=== PATIENT | male | born 1960 | race Caucasian/White ===

== ENCOUNTER 2024-03-15 22:21 | Emergency (ER) | payer OTHER, SELFPAY ==
[2024-03-15 22:26] VITALS: BP 165/75
[2024-03-16 00:01] VITALS: BP 114/80; BMI 27.0
[2024-03-16 00:24] LABS: Urine Albumin Negative (Neg - Trace); Urine Bilirubin Negative (Negative); Urine Character Clear (Clear); Urine Color Yellow; Urine Glucose Negative (Negative); Urine Ketone Negative (Negative); Urine Leukocyte Negative (Negative); Urine Nitrite Negative (Negative); Urine Occult Blood 2+ (Negative); Urine Specific Gravity 1.015 (<1.030); Urine Urobilinogen Negative (Neg - 1+)
--- NOTE | 2024-03-16 00:33 | ED.GENMED ---
History of Present Illness
General
Chief Complaint: Urinary Symptoms
Source: patient and family
Exam Limitations: none
Time Seen by Provider: 03/15/24 23:53
History of Present Illness
History of Present Illness:
63-year-old male who presents with inability urinate for last 4 to 6 hours. States he has been having issues with difficulty urinating and low powered stream as well as frequent urination. Patient denies fevers. Denies vomiting.
Past History
Past History
ED Past Medical History: Cancer (Colon), HTN and Psychiatric (Anxiety, depression)
ED Past Surgical History: Bowel resection
Social History
Tobacco: Smoker
Phy Exam
Physical Exam
Physical Exam:
CONSTITUTIONAL Patient alert and oriented to person, place and time. Well-appearing. Vital signs reviewed.
HEAD atraumatic, normocephalic.
EYES eyelids normal to inspection, Extraocular muscles intact, Conjunctiva normal, Sclera normal.
NECK normal range of motion, Trachea midline, no jugular venous distention.
RESPIRATORY CHEST No respiratory distress noted, Chest expansion equal
ABDOMEN abdomen nontender, Bowel sounds normal. No distention.
uncircumcised, foreskin easily retractable, penis normal, scrotum normal
BACK normal inspection, no obvious deformities
UPPER EXTREMITY range of motion normal, Motor strength normal, no cyanosis, no edema.
LOWER EXTREMITY range of motion normal, Motor strength normal, no cyanosis, no edema.
NEURO Speech normal, No focal motor deficits, Kamrar coma scale 15, Memory normal, Cranial Nerves intact to screening exam.
SKIN skin warm, dry, and normal in color.
Course
Orders/Labs/Results
Orders:
Orders
03/15/24 22:45
Gonzalez [Gonzalez Placement- Treatment] ONCE
Reason for insertion: Acute Retention
03/16/24 00:06
Urinalysis Reflex To Culture Urgent
Date Specimen was Collected: 03/16/24
Time Specimen was Collected: 00:04
Urine Microscopic Reflex Cult Urgent
Abnormal Lab Results
03/16/24
00:06
Ur Occult Blood Reflex 2+ A
(Negative)
Vital Signs
Initial and Last Documented VS:
Initial Vital Signs
Temp Pulse Resp BP Pulse Ox
98.3 F 77 18 165/75 98
03/15/24 22:26 03/15/24 22:26 03/15/24 22:26 03/15/24 22:26 03/15/24 22:26
Last Documented Vital Signs
Temp Pulse Resp BP Pulse Ox
98.2 F 75 18 114/80 97
03/16/24 00:00 03/16/24 00:01 03/16/24 00:01 03/16/24 00:01 03/16/24 00:01
MDM/Problems Addressed
MDM/Problems Addressed:
Acute urinary retention
*Pulse Oximetry
Patient hypoxic: no
*Critical Care Note
Total Time (30-74mins, 75-104mins- exclusive of procedures): Not Applicable
Data Reviewed
Source: patient and family
Prescriptions/Medications Considered But Not Given:
Consider antibiotics but hold off and follow-up with urology
Patient Management
Escalation/DeEscalation of care consider admission/obs:
Urinary retention now with Gonzalez catheter and feels much better. Okay for discharge outpatient follow-up with urology
ED Attending Note
-
Portions of this chart may have been created with voice recognition software.� Occasional wrong word or��sound alike� substitutions may have occurred due to the inherent limitations of voice recognition software.
Discharge Plan
Departure
Patient Disposition: Home (Routine Discharge)
Date of Disposition: 03/16/24
Time of Disposition: 00:36
Patient with high blood pressure during this ER visit?: No
Discharge Problem:
Acute urinary retention
Instructions: Urinary retention
Prescriptions:
New
levofloxacin 250 mg tablet
250 mg PO DAILY Qty: 7 0RF
Referrals:
Jose Sandoval MD [Active] -
Activity Restrictions/Additional Instructions:
Please see urology in the next 7 days for follow-up and reevaluation and Gonzalez catheter removal. Return immediately for blood in the urine, fevers, abdominal pain, vomiting or any other concerns
Interventions
Interventions:
*Risk Screen - Suicide Last Done: 03/15/24 22:26
*General Assessment Last Done: 03/15/24 22:26
*Neglect/Abuse Screening Last Done: 03/16/24 00:02
*ED COVID-19 Vaccine History Last Done: 03/15/24 22:26
ED-Male Genitourinary Assessment Last Done: 03/16/24 00:03
Discharge Date and Time
Print Language: LUX[place]BOURG[place]
[2024-03-16 00:57] LABS: Urine Bacteria Few (Negative); Urine Squamous Cell 0-2 /LPF (Few); Urine White Cell 0-2 /HPF (0-5)
== END 2024-03-16 01:10 | disposition home or self-care (01) ==
LOC: EMR 22:21
PROVIDERS: EMERGENCY PHYSICIAN Emergency Medicine; FAMILY PHYSICIAN Internal Medicine
DX: R33.8 Other retention of urine (principal); I10 Essential (primary) hypertension; F17.200 Nicotine dependence, unspecified, uncomplicated; Z85.038 Personal history of other malignant neoplasm of large intestine
CPT/HCPCS: 51702; 99283; 81003; 81015

== ENCOUNTER 2024-03-16 11:26 | Emergency (ER) | payer OTHER, SELFPAY ==
[2024-03-16 11:38] VITALS: BP 144/85
--- NOTE | 2024-03-16 13:36 | ED.GENMED ---
History of Present Illness
General
Chief Complaint: Catheter/Tube Problem
Source: patient
Time Seen by Provider: 03/16/24 13:16
History of Present Illness
History of Present Illness:
63-year-old male with past medical history of hypertension, previous colon cancer, anxiety and depression, seen in the emergency department early this morning for evaluation of urinary retention, had a Gonzalez catheter placed and was discharged home
with a prescription for levofloxacin. Patient states that early this morning into this afternoon he started noticed some blood within the Gonzalez catheter bag which had him concerned and he decided to come back to the ER for further evaluation.
Patient denies any fevers, chills, rigors but does note he is having bladder spasms and irritation with the Gonzalez catheter in place.
Past History
Past History
ED Past Medical History: Cancer (Colon), HTN and Psychiatric (Anxiety, depression)
ED Past Surgical History: Bowel resection
Social History
Tobacco: Smoker
Alcohol: None
Drug: None
Personal:
Living: with family
Review of Systems
Review of Systems
All Other Systems: ROS reviewed and negative except as documented in HPI and ROS
Phy Exam
Physical Exam
Physical Exam:
GENERAL: Alert , in no apparent distress
EYE: conjunctiva clear
Head: Normocephalic atraumatic
NECK: Supple,
ENT: mmm.
LUNGS: no acute respiratory distress
NEUROLOGICAL: Alert and oriented
SKIN: Warm and dry, skin intact.
MUSCULOSKELETAL: well perfused.
PSYCH: Normal and appropriate interaction.
Scores
Heart Failure Risk
Heart Failure Risk Score: Not Applicable
Heart Score for Chest Pain Patients
STEMI patient?: Not applicable
Withdrawal Assessment of Alcohol
Withdrawal Assessment Completed?: Not applicable
Course
Vital Signs
Initial and Last Documented VS:
Initial Vital Signs
Temp Pulse Resp BP Pulse Ox
98.0 F 78 18 144/85 99
10/17/24 11:38 03/16/24 11:38 03/16/24 11:38 03/16/24 11:38 03/16/24 11:38
Last Documented Vital Signs
Temp Pulse Resp BP Pulse Ox
98.0 F 78 18 144/85 99
03/16/24 11:38 03/16/24 11:38 03/16/24 11:38 03/16/24 11:38 03/16/24 11:38
MDM/Problems Addressed
Differential Diagnosis Includes:
Bladder spasm/irritation secondary to Gonzalez catheter insertion, less concern for UTI, mechanical dysfunction of catheter
MDM/Problems Addressed:
63-year-old male presenting back to the emergency department for reevaluation after having Gonzalez catheter placed last night due to urinary retention. Patient noting blood within Gonzalez catheter bag. Here the urine is blood-tinged with small clots
but draining properly. Patient's abdomen is nondistended and bladder scan reveals only 8 mL of urine within the bladder patient was already discharged home on levofloxacin but did not receive a prescription for Flomax. Will add this onto patient's
regimen. Advised patient on further care of his Gonzalez catheter. I encouraged patient to contact the urology team to follow-up next week. Stable for discharge home and aware of return precautions.
*Pulse Oximetry
Patient hypoxic: no
*Critical Care Note
Total Time (30-74mins, 75-104mins- exclusive of procedures): Not Applicable
Data Reviewed
Review of Other/Old Records Reveals: Records and Testing
Source: patient and records
ED Attending Note
-
Portions of this chart may have been created with voice recognition software.� Occasional wrong word or��sound alike� substitutions may have occurred due to the inherent limitations of voice recognition software.
Discharge Plan
Departure
Patient Disposition: Home (Routine Discharge)
Date of Disposition: 03/16/24
Time of Disposition: 13:36
Patient with high blood pressure during this ER visit?: Yes
Discharge Problem:
Hematuria, Acute urinary retention
Instructions: How to Care for Your Gonzalez Catheter, Male
Prescriptions:
New
tamsulosin [Flomax] 0.4 mg capsule
0.4 mg PO DAILY Qty: 15 0RF
No Action
levofloxacin 250 mg tablet
250 mg PO DAILY Qty: 7 0RF
Referrals:
Mehrdad Conteh MD [Family Provider] -
Louie Dangelo MD [Active] - (Urology - Call for appointment)
Interventions
Interventions:
*Risk Screen - Suicide Last Done: 03/16/24 11:38
*General Assessment Last Done: 03/16/24 11:38
*Neglect/Abuse Screening Last Done: 03/16/24 13:15
*ED COVID-19 Vaccine History Last Done: 03/16/24 11:38
*Nursing Disposition Last Done: 03/16/24 14:19
IW-Tsrfkt-Nwcfikzrvj Assessment Last Done: 03/16/24 13:12
ED-Male Genitourinary Assessment Last Done: 03/16/24 13:12
Discharge Date and Time
Discharge Date/Time: 03/16/24 14:19
Print Language: HUNGARIAN
== END 2024-03-16 14:19 | disposition home or self-care (01) ==
LOC: EMR 11:26
PROVIDERS: EMERGENCY PHYSICIAN Emergency Medicine; FAMILY PHYSICIAN Internal Medicine
DX: R31.9 Hematuria, unspecified (principal); R33.9 Retention of urine, unspecified; I10 Essential (primary) hypertension; F41.8 Other specified anxiety disorders; F17.200 Nicotine dependence, unspecified, uncomplicated; Z85.038 Personal history of other malignant neoplasm of large intestine
CPT/HCPCS: 99282; 51702